=== PATIENT | male | born 1970 | race American Indian/Alaskan Native ===

== ENCOUNTER 2017-09-17 22:21 | Emergency (ER) | payer SELFPAY ==
[2017-09-17 23:12] VITALS: BP 136/85
[2017-09-17] MEDS ORDERED: HYDROGEN PEROXIDE TP ONE (23:15)
[2017-09-18] MEDS ORDERED: HYDROGEN PEROXIDE ONE (06:16)
== END 2017-09-18 07:58 | disposition left against medical advice (07) ==
LOC: ED 22:21
DX: H92.01 Otalgia, right ear (principal); Z53.21 Procedure and treatment not carried out due to patient leaving prior to being seen by health care provider